=== PATIENT | female | born 1955 | race Caucasian/White ===

== ENCOUNTER 2022-12-18 21:55 | Emergency (ER) | payer OTHER ==
[2022-12-18 22:07] VITALS: BP 136/70; PULSE 90; RESP 18; TEMP 98.6; BMI 28.0
[2022-12-19] MEDS ORDERED: ACETAMINOPHEN 325 MG TABLET (FP) PO ONE (02:26)
[2022-12-19] MEDS ORDERED: ACETAMINOPHEN 325 MG TABLET (FP) ONE (02:31)
== END 2022-12-19 06:25 | disposition home or self-care (01) ==
LOC: JER 21:55 → JERFT 21:55 → JER 12-19 06:25
DX: M79.671 Pain in right foot (principal); W19.XXXA Unspecified fall, initial encounter
CPT/HCPCS: 72170-TC-FY; 73590-TC-RT-FY; 73610-TC-RT-FY; 73630-TC-RT-FY; 99284-25

== ENCOUNTER 2024-03-16 21:00 | Emergency (ER) | payer OTHER ==
[2024-03-16 21:08] VITALS: RESP 16; BMI 28.0
[2024-03-16 21:22] VITALS: BP 124/78; PULSE 63; TEMP 98.6
[2024-03-16] MEDS: DIPHTH,PERTUSS(ACELL),TET 0.5 ML DISP.SYRIN IM ONE (21:26)
[2024-03-16] MEDS: BACITRACIN ZINC 15 GM TUBE TOPICAL OINTMENT TP ONE (23:30)
== END 2024-03-16 23:32 | disposition home or self-care (01) ==
LOC: FER 21:00
DX: S00.83XA Contusion of other part of head, initial encounter (principal); S60.811A Abrasion of right wrist, initial encounter; S80.211A Abrasion, right knee, initial encounter; W01.198A Fall on same level from slipping, tripping and stumbling with subsequent striking against other object, initial encounter
CPT/HCPCS: 70450-TC; 70486-TC; 71046-TC-FY; 72125-TC; 73130-TC-RT-FY; 73562-TC-RT-FY; 99284-25